=== PATIENT | male | born 1955 | race Caucasian/White ===

== ENCOUNTER 2017-02-14 15:12 | Outpatient (CLI) | payer OTHER ==
[2017-02-14 16:33] LABS: eGFR (African) > 60; eGFR (Non-African) > 60
== END 2017-02-14 15:13 ==
LOC: LAB 15:12
PROVIDERS: ATTEND Family Medicine
DX: I10 Essential (primary) hypertension (principal)
CPT/HCPCS: 36415; 80048

== ENCOUNTER 2017-05-09 15:43 | Outpatient (CLI) | payer OTHER ==
[2017-05-09 15:57] LABS: BASOPHILS % 0.5 (0.0-1.5); EOSINOPHILS % 1.4 % (0.0-6.8); MEAN CORPUSCULAR HEMOGLOBIN 28.1 pg (28.0-34.0); MEAN CORPUSCULAR VOLUME 87.8 fl (80.0-100.0); MONOCYTES % 7.7 % (0.0-11.0); NEUTROPHILS # 3.8 # k/uL (1.4-7.7)
[2017-05-09 16:26] LABS: eGFR (African) > 60; eGFR (Non-African) > 60
== END 2017-05-09 15:44 ==
LOC: LAB 15:43
PROVIDERS: ATTEND Family Medicine
DX: E87.6 Hypokalemia (principal); I10 Essential (primary) hypertension; E55.9 Vitamin D deficiency, unspecified
CPT/HCPCS: 36415; 80048; 82306; 85025

== ENCOUNTER 2017-08-26 10:55 | Outpatient (CLI) | payer OTHER | END 2017-08-26 10:56 | LOC: LAB 10:55 | PROVIDERS: ATTEND Family Medicine | DX: E78.00 Pure hypercholesterolemia, unspecified (principal) | CPT/HCPCS: 36415; 80061 ==

== ENCOUNTER 2018-04-13 09:18 | Outpatient (CLI) | payer OTHER ==
[2018-04-16 14:05] LABS: BASO % 0.3; EOS % 3.7; LYMPH ABS # 1.16; MCV 84.3; MONOCYTE % 12.6; MONOCYTE ABS # 0.74; PLATELET COUNT 347
== END 2018-04-13 09:20 ==
LOC: LAB 09:18
PROVIDERS: ATTEND Family Medicine
DX: I10 Essential (primary) hypertension (principal)
CPT/HCPCS: 36415; 80048; 85025

== ENCOUNTER 2019-09-01 09:30 | Outpatient (CLI) | payer OTHER ==
[2019-09-01 10:26] LABS: HDL 47 mg/dL (>40); eGFR (Non-African) > 60
== END 2019-09-01 09:35 ==
LOC: LAB 09:30
PROVIDERS: ATTEND Family Medicine
DX: I10 Essential (primary) hypertension (principal); E78.00 Pure hypercholesterolemia, unspecified; E55.9 Vitamin D deficiency, unspecified
CPT/HCPCS: 36415; 80053; 80061; 82306